=== PATIENT | male | born 2005 | race Caucasian/White ===

== ENCOUNTER 2025-04-24 00:59 | Emergency (ER) | payer OTHER, SELFPAY ==
[2025-04-24 01:08] VITALS: BP 159/77
[2025-04-24 03:00] VITALS: BP 133/55
--- NOTE | 2025-04-24 03:59 | ED.GENMED ---
History of Present Illness
General
Chief Complaint: Fainting/Passed Out
Source: patient
Exam Limitations: none
Time Seen by Provider: 04/24/25 03:24
Nursing documentation reviewed up to this point in time: agreed with
History of Present Illness
History of Present Illness:
Note:
CHIEF COMPLAINT(S)
Possible seizure-like episode and vomiting after consuming a non-alcoholic root drink.
HISTORY OF PRESENT ILLNESS
The patient is a 19-year-old male who reports an episode earlier in the evening where he consumed a product referred to as 'kava,' described as a non-alcoholic root drink similar to tea, at a [email or web address] bar in [place]. Shortly after consumption, the
patient experienced a transient loss of consciousness lasting approximately 15 seconds, during which bystanders noted stiffening of his arms and legs. The patient does not recall the event himself and is recounting based on descriptions from his
companions.
Following the episode, the patient vomited en route to the facility, expelling the liquid he had consumed. This vomiting continued briefly upon arrival. The patient currently reports feeling considerably better but notes residual fatigue and is
gradually sipping small amounts of water to alleviate dryness in his mouth.
External substances mentioned that may have caused his symptoms include 'kava' and possibly 'kratom,' though the patient denies frequent use. The patient additionally reports a long day of travel, which might have aggravated his stomach discomfort.
PHYSICAL EXAM
General: Alert, no acute distress.
Skin: Warm, dry.
Head: Normocephalic, atraumatic.
Neck: Supple, trachea midline.
Eye Ears, nose, mouth and throat: Oral mucosa moist.
Cardiovascular: Normal peripheral perfusion, No edema.
Respiratory: Respirations are non-labored.
Gastrointestinal: Abdomen nondistended.
Back: Normal range of motion, Normal alignment.
Musculoskeletal: Normal ROM, normal strength.
Neurological: Alert and oriented to person, place, time, and situation, No focal neurological deficit observed.
Psychiatric: Cooperative, appropriate mood & affect.
PLAN
Vital sign monitoring is ongoing to ensure stability. If the patients vital signs remain stable, discharge to home is anticipated with advice for rest and hydration. Follow-up care or further evaluation may be considered if symptoms recur or persist.
DIFFERENTIAL DIAGNOSIS
The Differential Diagnosis includes, in no particular order and is not limited to:
1. Syncope
2. Seizure
3. Vasovagal episode
4. Toxic reaction to ingested substance (possibly kava or kratom)
5. Acute gastroenteritis
6. Dehydration
7. Hypoglycemia
8. Panic attack
9. Medication or substance-induced event
10. Hypotension
Disposition:
SUMMARY OF ENCOUNTER
The patient, a 19-year-old male, presented after an episode of loss of consciousness lasting approximately 15 seconds, following the consumption of a drink called 'kava' at a bar. Kava is known to have calming effects and reduce anxiety. The episode
was witnessed by friends. Currently, the patient is asymptomatic.
DISPOSITION
Discharge.
ASSESSMENT
The patients symptoms appear consistent with a possible vasovagal episode or reaction to the ingested substance.
PLAN
The patient is to be discharged with advice for rest and adequate hydration. Further evaluation may be considered if symptoms recur.
PATIENT EDUCATION AND COUNSELING
The patient was informed about the potential effects of kava consumption, including the possibility of similar symptoms occurring with future use, and advised to avoid it if similar symptoms recur.
MEDICAL DECISION MAKING
-Complexity of Data Reviewed: Considered probable acute reaction to ingested kava, potentially causing a vasovagal episode or similar.
-Data:
Category 1
No lab tests were ordered or reviewed as the patient was asymptomatic upon evaluation.
-Risk:
Consideration of Admission/Observation: Escalation of care including admission/observation was considered given the complexity and risk of the patients presenting complaint, however, the patient is safe for outpatient management with close follow-up
due to stable vitals, symptom resolution, and reliability for follow-up.
DIAGNOSIS
Acute reaction to kava ingestion (T50.995A - Adverse effect of other specified drugs, medicaments, and biological substances, initial encounter). Vasovagal syncope (R55 - Syncope and collapse).
EKG shows normal sinus rhythm rate 72 normal intervals, normal axis. No evidence of acute ischemia present. No old EKG available for comparison.
Phy Exam
Physical Exam
Physical Exam:
.
Course
Orders/Labs/Results
Orders:
Orders
04/24/25 04:03
Electrocardiogram (*1) Urgent
Reason for Study: Vertigo / Dizzy
EKG- Treatment ONCE
Vital Signs
Initial and Last Documented VS:
Initial Vital Signs
Temp Pulse Resp BP Pulse Ox
97.5 F 95 20 159/77 99
04/24/25 01:08 04/24/25 01:08 04/24/25 01:08 04/24/25 01:08 04/24/25 01:08
Last Documented Vital Signs
Temp Pulse Resp BP Pulse Ox
97.5 F 67 12 133/55 99
04/24/25 01:08 04/24/25 03:15 04/24/25 03:15 04/24/25 03:00 04/24/25 04:01
*Pulse Oximetry
SaO2: 99
Oxygen Mode of Delivery: Room air
Patient hypoxic: no
*Critical Care Note
Total Time (30-74mins, 75-104mins- exclusive of procedures): Not Applicable
ED Attending Note
-
Portions of this chart may have been created with voice recognition software.� Occasional wrong word or��sound alike� substitutions may have occurred due to the inherent limitations of voice recognition software.
Discharge Plan
Departure
Patient Disposition: Home (Routine Discharge)
Date of Disposition: 04/24/25
Time of Disposition: 04:16
Patient with high blood pressure during this ER visit?: Yes
Condition: Fair
Discharge Problem:
Syncope, Medication reaction
Instructions: Syncope (Fainting) (DC), BLOOD PRESSURE
Prescriptions:
No Action
citalopram [Celexa] 20 mg Tablet
20 mg PO DAILY
Referrals:
[facility] [Provider Group]
[facility] [Outside]
NONE,* [Family Provider, Internal Medicine]
Activity Restrictions/Additional Instructions:
Thank You for choosing [facility].
It was a pleasure meeting you and taking part in your care. We hope for your continued healing and wellness.
Please read discharge instructions in their entirety. However, they are for general education and may not describe your exact diagnosis at discharge. Information on your ER visit and medical conditions were discussed with you along with appropriate
follow up information...
If indicated, please take your medications as instructed and indicated on discharge paperwork.
Please schedule a follow up appointment as directed. Call to schedule an appointment
Please return to the emergency department with ANY change in, persisting, or worsening of symptoms. If any of your symptoms do not improve, or persist, or become more severe within 6-12 hours, please return to the emergency department for further
care.
Please return to the emergency department if you develop a headache, neck pain/stiffness, fever greater than 100.4F, chest pain, shortness of breath, persistent nausea, vomiting, slurred speech, difficulty walking, numbness/tingling, weakness, signs
of infection or any other symptoms that are worrisome to you.
If you have any questions or concerns please do not hesitate to call the Hospital at .
Interventions
Interventions:
*Risk Screen - Suicide Last Done: 04/24/25 01:08
*General Assessment Last Done: 04/24/25 01:08
*Neglect/Abuse Screening Last Done: 04/24/25 01:08
*ED- Fall Risk Assessment Last Done: 04/24/25 01:08
*ED COVID-19 Vaccine History Last Done: 04/24/25 01:08
*ED Influenza Vaccine History Last Done: 04/24/25 01:08
ED- Cardiac Assessment Last Done: 04/24/25 03:39
ED- Neurological Assessment Last Done: 04/24/25 03:39
Discharge Date and Time
Print Language: SAMI
[2025-04-24 04:00] VITALS: BP 139/65
== END 2025-04-24 04:38 | disposition home or self-care (01) ==
LOC: EMR 00:59
PROVIDERS: EMERGENCY PHYSICIAN Student in an Organized Health Care Education/Training Program
DX: R55 Syncope and collapse (principal); T50.905A Adverse effect of unspecified drugs, medicaments and biological substances, initial encounter; Y92.9 Unspecified place or not applicable
CPT/HCPCS: 99283; 93005